=== PATIENT | female | born 1995 | race Caucasian/White ===

== ENCOUNTER 2020-05-05 17:29 | Outpatient (CLI) | payer MEDICAID ==
[~2020-05-05] VITALS: Ht 160 cm; Wt 65.0 kg
[~2020-05-05 17:29] MED LIST: ALBU8.5H5 INH; IBUP-1222 PO; ONDA4TAB7 PO; OXYC-302 PO; PREN1TAB60 PO; SERT50TA PO
[2020-05-05 17:47] VITALS: BP 122/74
[2020-05-05 18:00] LABS: MICROSCOPIC INDICATED
[2020-05-05 18:07] LABS: AMPHETAMINE SCREEN, URINE Positive (Negative); BARBITURATE SCREEN, URINE Negative (Negative); BENZODIAZEPINE SCREEN, URINE Negative (Negative); CANNABINOID SCREEN, URINE Negative (Negative); COCAINE SCREEN, URINE Negative (Negative); METHADONE SCREEN, URINE Negative (Negative); OPIATE SCREEN, URINE Negative (Negative)
== END 2020-05-05 18:59 ==
LOC: LDOP 17:29
PROVIDERS: ATTEND Obstetrics & Gynecology
DX: O26.899 Other specified pregnancy related conditions, unspecified trimester (principal); R10.9 Unspecified abdominal pain; Z3A.00 Weeks of gestation of pregnancy not specified
CPT/HCPCS: 59025; 80307; 81001; 87086; 99211; G0463

== ENCOUNTER 2020-06-22 15:21 | Outpatient (CLI) | payer MEDICAID ==
[~2020-06-22] VITALS: Ht 157.5 cm; Wt 76.2 kg
[2020-06-22 15:46] VITALS: BP 110/60
[2020-06-22 15:54] LABS: MICROSCOPIC INDICATED
[2020-06-22 16:04] LABS: AMPHETAMINE SCREEN, URINE Negative (Negative); BARBITURATE SCREEN, URINE Negative (Negative); BENZODIAZEPINE SCREEN, URINE Negative (Negative); METHADONE SCREEN, URINE Negative (Negative); OPIATE SCREEN, URINE Negative (Negative)
[2020-06-22 16:08] LABS: CANNABINOID SCREEN, URINE Negative (Negative); COCAINE SCREEN, URINE Negative (Negative)
== END 2020-06-22 16:30 | disposition home or self-care (01) ==
LOC: LDOP 15:21
PROVIDERS: ATTEND Obstetrics & Gynecology
DX: O26.899 Other specified pregnancy related conditions, unspecified trimester (principal); R42 Dizziness and giddiness; Z3A.00 Weeks of gestation of pregnancy not specified
CPT/HCPCS: 59025; 80307; 81001

== ENCOUNTER 2020-06-29 23:27 | Outpatient (CLI) | payer MEDICAID ==
[~2020-06-29] VITALS: Ht 157.5 cm; Wt 78.2 kg
[2020-06-29 23:30] VITALS: BP 122/57
[2020-06-29] MEDS ORDERED: PREN1TAB60 PO (23:49)
[2020-06-29] MEDS ORDERED: MONT10TA6 PO (23:50)
[2020-06-29 23:51] LABS: AMPHETAMINE SCREEN, URINE Negative (Negative); BARBITURATE SCREEN, URINE Negative (Negative); BENZODIAZEPINE SCREEN, URINE Negative (Negative); CANNABINOID SCREEN, URINE Negative (Negative); COCAINE SCREEN, URINE Negative (Negative); METHADONE SCREEN, URINE Negative (Negative); OPIATE SCREEN, URINE Negative (Negative)
[2020-06-29] MEDS ORDERED: BUSP5TAB2 PO (23:55)
[2020-06-29] MEDS ORDERED: ONDA8TAB9 PO (23:55)
[2020-06-29] MEDS ORDERED: OMEP20TA62 PO (23:56)
[2020-06-29] MEDS ORDERED: BECL10.62 IH (23:56)
[2020-06-29] MEDS ORDERED: ACET650S21 PO (23:57)
[2020-06-29] MEDS ORDERED: IRON1TAB60 PO (23:58)
[2020-06-30] LABS: MICROSCOPIC INDICATED
== END 2020-06-30 00:27 | disposition home or self-care (01) ==
LOC: LDOP 23:27
PROVIDERS: ATTEND Obstetrics & Gynecology
DX: O26.893 Other specified pregnancy related conditions, third trimester (principal); Z3A.36 36 weeks gestation of pregnancy
CPT/HCPCS: 59025; 80307; 81001; 87086

== ENCOUNTER → 2020-07-02 | Outpatient (CLI) | payer MEDICAID ==
[~2020-07-02] VITALS: Ht 157.5 cm; Wt 78.2 kg
[~2020-07-02] MED LIST changes: +ACET650S21 PO; +BECL10.62 IH; +BUSP5TAB2 PO; +IRON1TAB60 PO; +MONT10TA6 PO; +OMEP20TA62 PO; +ONDA8TAB9 PO
== END | disposition home or self-care (01) ==
LOC: LDOP 22:31
PROVIDERS: ATTEND Obstetrics & Gynecology
DX: O26.893 Other specified pregnancy related conditions, third trimester (principal); R10.9 Unspecified abdominal pain; Z3A.36 36 weeks gestation of pregnancy
CPT/HCPCS: 59025

== ENCOUNTER 2020-07-04 21:31 | Outpatient (CLI) | payer MEDICAID ==
[~2020-07-04] VITALS: Ht 157.5 cm; Wt 80.0 kg
[2020-07-04 21:45] VITALS: BP 126/68
== END 2020-07-04 22:46 | disposition home or self-care (01) ==
LOC: LDOP 21:31
PROVIDERS: ATTEND Obstetrics & Gynecology
DX: O42.92 Full-term premature rupture of membranes, unspecified as to length of time between rupture and onset of labor (principal); Z3A.37 37 weeks gestation of pregnancy
CPT/HCPCS: 59025; 84112

== ENCOUNTER 2020-07-14 09:32 | Outpatient (CLI) | payer MEDICAID ==
[~2020-07-14] VITALS: Ht 157.5 cm; Wt 81.3 kg
[2020-07-14 11:00] LABS: AMPHETAMINE SCREEN, URINE Negative (Negative); BARBITURATE SCREEN, URINE Negative (Negative); CANNABINOID SCREEN, URINE Negative (Negative); COCAINE SCREEN, URINE Negative (Negative); METHADONE SCREEN, URINE Negative (Negative); OPIATE SCREEN, URINE Negative (Negative)
[2020-07-14 11:01] LABS: BENZODIAZEPINE SCREEN, URINE Negative (Negative)
== END 2020-07-14 11:06 | disposition home or self-care (01) ==
LOC: LDOP 09:32
PROVIDERS: ATTEND Obstetrics & Gynecology
DX: Z34.83 Encounter for supervision of other normal pregnancy, third trimester (principal); Z3A.39 39 weeks gestation of pregnancy
CPT/HCPCS: 59025; 80307

== ENCOUNTER 2020-07-17 00:02 | Inpatient (IN) | payer MEDICAID ==
[~2020-07-17] VITALS: Ht 157.5 cm; Wt 82.0 kg
[2020-07-17] MEDS ORDERED: OXYTOCIN 30U/ 0.9% NaCL 500ML 500 ML IV PRN (00:06)
[2020-07-17] MEDS ORDERED: OXYTOCIN 30U/ 0.9% NaCL 500ML 500 ML IV ONE (00:06)
[2020-07-17] MEDS ORDERED: D5%-LACTATED RINGERS 1,000 ML IV SCH (00:06)
[2020-07-17] MEDS ORDERED: TERBUTALINE 1 MG/ML, 1ML IVPush PRN (00:30)
[2020-07-17] MEDS ORDERED: FENTANYL PF 100 MCG/2ML IV PRN (00:30)
[2020-07-17] MEDS ORDERED: TERBUTALINE 1 MG/ML, 1ML SQ PRN (00:30)
[2020-07-17] MEDS ORDERED: CALCIUM CARBONATE 500 MG TAB.CHEW PO PRN (00:30)
[2020-07-17] MEDS ORDERED: ONDANSETRON 2MG/ML, 2ML IVPush PRN ×2 (00:30→07:30)
[2020-07-17] MEDS ORDERED: METOCLOPRAMIDE 5 MG/ML, 2ML IVPush PRN (00:30)
[2020-07-17] MEDS ORDERED: SODIUM CITRATE/CITRIC ACID 30 ML UDC PO PRN (00:30)
[2020-07-17 00:38] LABS: BASOPHILS # (AUTO) 0.06 x10^3/uL (0-0.1); BASOPHILS % (AUTO) 1 % (0-1); EOSINOPHILS # (AUTO) 0.18 x10^3/uL (0-0.4); EOSINOPHILS % (AUTO) 2 % (1-7); LYMPHOCYTES # (AUTO) 2.89 x10^3/uL (1-3.4); LYMPHOCYTES % (AUTO) 24 % (22-44); MD NO; MEAN CORPUSCULAR HEMOGLOBIN 28.7 pg (27.0-34.8); MEAN CORPUSCULAR HGB CONC 32.7 g/dL (32.4-35.8); MEAN CORPUSCULAR VOLUME 87.8 fL (80-100); MONOCYTES # (AUTO) 0.81 x10^3/uL (0.2-0.8); MONOCYTES % (AUTO) 7 % (2-9); NEUTROPHILS # (AUTO) 8.18 x10^3/uL (1.8-6.8); NEUTROPHILS % (AUTO) 68 % (42-75); PLATELET COUNT 255 x10^3/uL (130-400); RED BLOOD COUNT 4.12 x10^6/uL (3.82-5.3); RED CELL DISTRIBUTION WIDTH 16.2 % (9.6-15.2)
[2020-07-17] MEDS ORDERED: OXYTOCIN 30U/ 0.9% NaCL 500ML 500 ML ONE ×2 (00:38→13:40)
[2020-07-17] MEDS: LACTATED RINGERS 1,000 ML IV SCH ×4 (01:00→13:38)
[2020-07-17] MEDS ORDERED: MISOPROSTOL 200 MCG TABLET ONE (01:10)
[2020-07-17] MEDS ORDERED: NEWBORN KIT ONE (01:10)
[2020-07-17] MEDS ORDERED: LIDOCAINE 1%, 20ML ONE (01:10)
[2020-07-17] MEDS ORDERED: ONDANSETRON 2MG/ML, 2ML ONE (01:40)
[2020-07-17 01:59] LABS: AMPHETAMINE SCREEN, URINE Negative (Negative); BARBITURATE SCREEN, URINE Negative (Negative); BENZODIAZEPINE SCREEN, URINE Negative (Negative); CANNABINOID SCREEN, URINE Negative (Negative); COCAINE SCREEN, URINE Negative (Negative); METHADONE SCREEN, URINE Negative (Negative); OPIATE SCREEN, URINE Negative (Negative)
[2020-07-17] MEDS ORDERED: FENTANYL PF 100 MCG/2ML ONE ×2 (05:39→07:02)
[2020-07-17] MEDS: FENTANYL PF 100 MCG/2ML IVPush PRN ×2 (05:41→07:04)
[2020-07-17] MEDS ORDERED: BUPIVACAINE 0.25% ONE (07:13)
[2020-07-17] MEDS ORDERED: FENTANYL/BUPIV./NS/PF 250 ML EPIDCONT ONE (07:13)
[2020-07-17] MEDS ORDERED: FENTANYL/BUPIV./NS/PF 250 ML EPIDCONT SCH (07:30)
[2020-07-17] MEDS ORDERED: NALOXONE 0.4 MG/ML, 1ML IVPush PRN (07:30)
[2020-07-17] MEDS ORDERED: EPHEDRINE 50 MG/ML, 1ML IVPush PRN (07:30)
[2020-07-17] MEDS ORDERED: LACTATED RINGERS 1,000 ML IVBOLUS PRN (07:30)
[2020-07-17] MEDS ORDERED: DIPHENHYDRAMINE 50 MG/ML, 1ML IVPush PRN (07:30)
[2020-07-17] MEDS ORDERED: LACTATED RINGERS 1,000 ML INTUTE PRN (08:30)
[2020-07-17] MEDS ORDERED: LACTATED RINGERS 1,000 ML INTUTE SCH (08:30)
[2020-07-17] MEDS ORDERED: ONDANSETRON 2MG/ML, 2ML IV PRN (13:30)
[2020-07-17] MEDS ORDERED: SIMETHICONE 80 MG CHEW TAB PO PRN (13:30)
[2020-07-17] MEDS ORDERED: METOCLOPRAMIDE 5 MG/ML, 2ML IV PRN (13:30)
[2020-07-17] MEDS ORDERED: ACETAMINOPHEN 325 MG TABLET PO PRN (13:30)
[2020-07-17] MEDS ORDERED: CARBOPROST TROMETHAMINE 250 MCG/ML, 1ML IM PRN (13:30)
[2020-07-17] MEDS ORDERED: MISOPROSTOL 200 MCG TABLET PR PRN (13:30)
[2020-07-17] MEDS ORDERED: METHYLERGONOVINE 0.2 MG/ML IM PRN (13:30)
[2020-07-17] MEDS ORDERED: HYDROcodone/APAP 5/325 TABLET PO PRN ×2 (13:30)
[2020-07-17] MEDS ORDERED: IBUPROFEN 600 MG TABLET ONE (13:35)
[2020-07-17] MEDS: IBUPROFEN 600 MG TABLET PO PRN ×2 (13:38→19:55)
[2020-07-17] MEDS: OXYTOCIN 30U/ 0.9% NaCL 500ML 500 ML IV SCH ×2 (13:42→23:30)
[2020-07-17 16:00] VITALS: BP 122/80
[2020-07-17] MEDS: ACETAMINOPHEN 325 MG TABLET PO PRN (18:45)
[2020-07-17 19:38] VITALS: BP 115/75
[2020-07-17] MEDS: DOCUSATE 100 MG CAPSULE PO PRN (19:54)
[2020-07-17 21:34] LABS: BASOPHILS # (AUTO) 0.05 x10^3/uL (0-0.1); BASOPHILS % (AUTO) 0 % (0-1); EOSINOPHILS # (AUTO) 0.07 x10^3/uL (0-0.4); EOSINOPHILS % (AUTO) 1 % (1-7); LYMPHOCYTES # (AUTO) 2.42 x10^3/uL (1-3.4); LYMPHOCYTES % (AUTO) 17 % (22-44); MD NO; MEAN CORPUSCULAR HEMOGLOBIN 28.7 pg (27.0-34.8); MEAN CORPUSCULAR HGB CONC 32.9 g/dL (32.4-35.8); MEAN CORPUSCULAR VOLUME 87.2 fL (80-100); MEAN PLATELET VOLUME 8.2 fL (7.4-10.4); MONOCYTES # (AUTO) 0.87 x10^3/uL (0.2-0.8); MONOCYTES % (AUTO) 6 % (2-9); NEUTROPHILS # (AUTO) 10.88 x10^3/uL (1.8-6.8); NEUTROPHILS % (AUTO) 76 % (42-75); PLATELET COUNT 208 x10^3/uL (130-400); RED BLOOD COUNT 4.09 x10^6/uL (3.82-5.3); RED CELL DISTRIBUTION WIDTH 16.2 % (9.6-15.2)
[2020-07-18] VITALS: BP 118/76
[2020-07-18] MEDS: ACETAMINOPHEN 325 MG TABLET PO PRN ×4 (00:39→14:48)
[2020-07-18] MEDS: IBUPROFEN 600 MG TABLET PO PRN ×3 (02:15→14:48)
[2020-07-18 04:15] VITALS: BP 115/78
[2020-07-18 07:51] VITALS: BP 108/71
[2020-07-18] MEDS: DOCUSATE 100 MG CAPSULE PO PRN (08:26)
[2020-07-18] MEDS ORDERED: PRENATAL VIT/IRON/FA 1 EACH TABLET PO SCH (09:00)
== END 2020-07-18 16:40 | disposition home or self-care (01) | DRG 807 ==
LOC: LDIP 00:02 → 2NW 15:30
PROVIDERS: ADMIT Obstetrics & Gynecology; ATTEND Obstetrics & Gynecology
PROC: 10E0XZZ Delivery of Products of Conception, External Approach (ICD-10-PCS; principal; 2020-07-18)
PROC: 3E033VJ Introduction of Other Hormone into Peripheral Vein, Percutaneous Approach (ICD-10-PCS; 2020-07-18)
PROC: 10907ZC Drainage of Amniotic Fluid, Therapeutic from Products of Conception, Via Natural or Artificial Opening (ICD-10-PCS; 2020-07-18)
PROC: 0HQ9XZZ Repair Perineum Skin, External Approach (ICD-10-PCS; 2020-07-18)
DX: O99.324 Drug use complicating childbirth (principal); Z37.0 Single live birth; F19.10 Other psychoactive substance abuse, uncomplicated; Z3A.39 39 weeks gestation of pregnancy; O70.0 First degree perineal laceration during delivery; Z20.828 Contact with and (suspected) exposure to other viral communicable diseases
CPT/HCPCS: 36415; 80307; 85025; 86592; 86850; 86900; 87635; G0378; J2405; J3010; J2590; J7120

== ENCOUNTER 2021-03-04 13:56 | Emergency (ER) | payer MEDICAID ==
[~2021-03-04] VITALS: Ht 157.5 cm; Wt 75.8 kg
[~2021-03-04 13:56] MED LIST changes: -OXYC-302 PO; +OXYC1TAB12 PO
[2021-03-04 13:58] VITALS: BP 116/46
--- NOTE | 2021-03-04 15:20 | NUR ---
PT ELOPED FROM LOBBY. NO ANSWER X2
== END 2021-03-04 15:21 | disposition left against medical advice (07) ==
LOC: ED 15:15
DX: O26.891 Other specified pregnancy related conditions, first trimester (principal); R10.2 Pelvic and perineal pain; Z3A.09 9 weeks gestation of pregnancy
CPT/HCPCS: 99281

== ENCOUNTER 2021-06-29 23:35 | Outpatient (CLI) | payer MEDICAID ==
[~2021-06-29] VITALS: Ht 157.5 cm; Wt 70.5 kg
[~2021-06-29 23:35] MED LIST changes: -OXYC1TAB12 PO; +OXYC1TAB14 PO
[2021-06-30] MEDS ORDERED: FLUT50BL INH (00:04)
[2021-06-30] MEDS ORDERED: CLON0.1T2 PO (00:09)
[2021-06-30] MEDS ORDERED: LAMO300T2 PO (00:09)
[2021-06-30 00:44] LABS: MICROSCOPIC INDICATED
[2021-06-30 01:18] LABS: AMPHETAMINE SCREEN, URINE Negative (Negative); BARBITURATE SCREEN, URINE Negative (Negative); BENZODIAZEPINE SCREEN, URINE Negative (Negative); CANNABINOID SCREEN, URINE Negative (Negative); COCAINE SCREEN, URINE Negative (Negative); METHADONE SCREEN, URINE Negative (Negative); OPIATE SCREEN, URINE Negative (Negative)
== END 2021-06-30 01:07 | disposition home or self-care (01) ==
LOC: LDOP 23:35
PROVIDERS: ATTEND Obstetrics & Gynecology
DX: O26.892 Other specified pregnancy related conditions, second trimester (principal); Z3A.25 25 weeks gestation of pregnancy
CPT/HCPCS: 76819; 80307; 81001; 87086; 87147; 99211; G0463

== ENCOUNTER 2021-07-07 20:52 | Outpatient (CLI) | payer MEDICAID ==
[~2021-07-07] VITALS: Ht 157.5 cm; Wt 70.0 kg
[~2021-07-07 20:52] MED LIST changes: +CLON0.1T2 PO; +FLUT50BL INH; +LAMO300T2 PO
== END 2021-07-07 23:59 | disposition home or self-care (01) ==
LOC: LDOP 20:52
PROVIDERS: ATTEND Obstetrics & Gynecology
DX: O26.892 Other specified pregnancy related conditions, second trimester (principal); R10.9 Unspecified abdominal pain; Z3A.26 26 weeks gestation of pregnancy
CPT/HCPCS: 76815

== ENCOUNTER 2021-08-09 02:40 | Outpatient (CLI) | payer MEDICAID ==
[~2021-08-09] VITALS: Ht 157.5 cm; Wt 72.3 kg
[~2021-08-09 02:40] MED LIST changes: +OXYC1TAB12 PO; -OXYC1TAB14 PO
[2021-08-09 03:24] LABS: MICROSCOPIC INDICATED
[2021-08-09] MEDS ORDERED: DIPHENHYDRAMINE 25 MG CAPSULE ONE (04:09)
[2021-08-09] MEDS ORDERED: PLEASE ENTER HEIGHT AND WEIGHT MC SCH (04:30)
[2021-08-09] MEDS ORDERED: DIPHENHYDRAMINE 25 MG CAPSULE PO PRN (05:00)
== END 2021-08-09 05:02 | disposition home or self-care (01) ==
LOC: LDOP 02:40
PROVIDERS: ATTEND Obstetrics & Gynecology
DX: O26.893 Other specified pregnancy related conditions, third trimester (principal); R10.9 Unspecified abdominal pain; Z3A.30 30 weeks gestation of pregnancy
CPT/HCPCS: 59025; 76819; 81001; 87086; Q0163